=== PATIENT | female | born 1940 | race Caucasian/White ===

== ENCOUNTER 2019-11-21 21:45 | Inpatient (IN) ==
[2019-11-22] MEDS ORDERED: Ondansetron 4 MG/2 ML VIAL IVP PRN (02:26)
[2019-11-22] MEDS ORDERED: Naloxone 0.4 MG/ML INJ IVP PRN (02:26)
[2019-11-22] MEDS ORDERED: Ringers Solution, Lactated 1,000 ML IVC SCH (02:30)
[2019-11-22 03:05] LABS: Adenovirus Not Detected (Not Detect); Bordetella Pertussis Not Detected (Not Detect); Chlamydophila pneumoniae Not Detected (Not Detect); Coronavirus 229E Not Detected (Not Detect); Coronavirus HKU1 Not Detected (Not Detect); Coronavirus NL63 Not Detected (Not Detect); Coronavirus OC43 Not Detected (Not Detect); Human Metapneumovirus Not Detected (Not Detect); Human Rhinovirus/Enterovirus Not Detected (Not Detect); Influenza A Subtype 2009 H1 Not Detected (Not Detect); Influenza B Not Detected (Not Detect); Mycoplasma pneumoniae Not Detected (Not Detect); Parainfluenza Virus 1 Not Detected (Not Detect); Parainfluenza Virus 2 Not Detected (Not Detect); Parainfluenza Virus 3 Not Detected (Not Detect); Parainfluenza Virus 4 Not Detected (Not Detect); Respiratory Syncytial Virus Not Detected (Not Detect); SARS-CoV-2 Not Detected (Not Detect)
[2019-11-22] MEDS ORDERED: Acetaminophen 325 MG TABLET PO PRN (03:29)
[2019-11-22] MEDS ORDERED: Ipratropium/Albuterol Neb 3 ML IH PRN (03:29)
[2019-11-22] MEDS ORDERED: DilTIAZem 50 MG/50 ML IV.SOLN IVC SCH (03:30)
[2019-11-22] MEDS ORDERED: Perflutren Lipid Microsphere 1.3 ML in 0.9 % Sodium Chloride 8.7 ML IVP PRN (03:35)
[2019-11-22] MEDS: Ipratropium/Albuterol Neb 3 ML IH SCH ×6 (04:20→23:06)
[2019-11-22] MEDS ORDERED: *HR* Heparin 5,000 UNIT/ML VIAL IVP PRN ×2 (04:31)
[2019-11-22] MEDS ORDERED: *HR* Heparin 5,000 UNIT/ML VIAL IVP ONE (04:31)
[2019-11-22] MEDS ORDERED: Heparin 25,000 UNIT/250 ML D5W 25,000 UNIT/250 ML IV.SOLN IVC SCH (04:45)
[2019-11-22] MEDS ORDERED: 0.9 % Sodium Chloride 500 ML ONE (05:56)
[2019-11-22 09:48] LABS: Basophils % 0.4 %; Hematocrit 32.9 % (35.3-44.9)
[2019-11-22 09:49] LABS: Immature Granulocytes % 0.4 % (0-4); Immature Platelets 7.3 % (1.1-6.1); Lymphocytes % 25.1 %; Mean Corpuscular HGB Conc 30.4 g/dL (31.6-35.5); Mean Corpuscular Hemoglobin 29.7 pg (28.0-33.3); Mean Corpuscular Volume 97.6 fL (83.0-100.0); Mean Platelet Volume 12.1 fL (9.4-12.4); Monocytes # 0.5 K/mcL (0.0-1.3); Monocytes % 6.5 %; Neutrophils # 5.5 K/mcL (1.6-8.9); Red Blood Count 3.37 M/mcL (3.82-4.97); Segmented Neutrophils % 67.6 %; White Blood Count 8.1 K/mcL (4.3-11.1)
[2019-11-22] MEDS: Piperacillin/Tazobactam 3.375 GM in 0.9 % Sodium Chloride Mini Bag 100 ML IVPB SCH ×3 (09:53→23:31)
[2019-11-22] MEDS: Aspirin Enteric Coated 81 MG Tablet PO SCH (09:55)
[2019-11-22 10:06] LABS: Platelet Count 56 K/mcL (140-400)
[2019-11-22 10:10] LABS: Albumin 2.1 g/dL (3.5-5.7); Albumin/Globulin Ratio 0.8 (1.1-2.2); Bilirubin,Total 0.4 mg/dL (0.3-1.0); Calcium 5.9 mg/dL (8.6-10.3); Globulin 2.5 g/dL (2.4-3.5); Magnesium 1.7 mg/dL (1.6-2.6); Potassium 3.6 mEq/L (3.5-5.1); Total Protein 4.6 g/dL (6.4-8.9); Troponin I 0.04 ng/mL (< 0.04)
[2019-11-22] MEDS: Levalbuterol Neb 0.63 MG/3 ML IH SCH ×3 (10:16→21:25)
[2019-11-22] MEDS ORDERED: Acetaminophen IV 500 MG/50 ML BAG IVPB ONE (12:15)
[2019-11-22 12:34] LABS: Phosphorous 2.1 mg/dL (2.7-4.5)
[2019-11-22] MEDS ORDERED: Calcium Gluconate 1gm/50mL 1 GM/50 ML BAG IVPB ONE (13:21)
[2019-11-22] MEDS ORDERED: Lidocaine -MPF 1% 5 ML AMPUL INFILT ONE (14:30)
[2019-11-22] MEDS ORDERED: *HR* Digoxin 0.5 MG/2 ML AMPUL IVP ONE (15:08)
[2019-11-22] MEDS: *HR* OxyCODONE/APAP 10/325 TABLET PO PRN ×2 (15:39→23:31)
[2019-11-22] MEDS ORDERED: Potassium Phosphate 44 MEQ in 0.9 % Sodium Chloride 250 ML IVPB PRN (16:09)
[2019-11-22 17:20] LABS: Calcium 5.9 mg/dL (8.6-10.3); Potassium 3.5 mEq/L (3.5-5.1)
[2019-11-22] MEDS: Potassium Chloride 40 MEQ/200 ML BAG IVPB PRN ×2 (18:42→20:30)
[2019-11-22] MEDS: Norepinephrine 4 MG/254 ML IV.SOLN IVC SCH (20:43)
[2019-11-22] MEDS: Calcium Gluconate 1gm/50mL 1 GM/50 ML BAG IVPB SCH ×2 (20:48→21:22)
[2019-11-23] MEDS: Norepinephrine 4 MG/254 ML IV.SOLN IVC SCH ×3 (01:14→23:00)
[2019-11-23] MEDS: Ipratropium/Albuterol Neb 3 ML IH SCH ×2 (03:33→07:21)
[2019-11-23] MEDS: Levalbuterol Neb 0.63 MG/3 ML IH SCH ×4 (03:34→21:13)
[2019-11-23 04:36] LABS: VBG Ionized Calcium 1.04 mmol/L (1.15-1.35)
[2019-11-23 04:49] LABS: Magnesium 2.2 mg/dL (1.6-2.6); Phosphorous 4.5 mg/dL (2.7-4.5)
[2019-11-23 04:51] LABS: Hemoglobin 10.1 g/dL (11.5-15.4); Immature Granulocytes % 0.8 % (0-4); Red Cell Distribution Width 16.2 % (11.5-14.5)
[2019-11-23 04:53] LABS: Basophils % 0.3 %; Hematocrit 32.9 % (35.3-44.9); Immature Platelets 9.4 % (1.1-6.1); Lymphocytes # 2.1 K/mcL (0.6-4.6); Lymphocytes % 27.5 %; Mean Corpuscular HGB Conc 30.7 g/dL (31.6-35.5); Mean Corpuscular Hemoglobin 29.4 pg (28.0-33.3); Mean Corpuscular Volume 95.6 fL (83.0-100.0); Mean Platelet Volume 11.2 fL (9.4-12.4); Monocytes # 0.3 K/mcL (0.0-1.3); Monocytes % 3.4 %; Nucleated Red Blood Cells 0.3 /100 WBC (0); Red Blood Count 3.44 M/mcL (3.82-4.97); White Blood Count 7.7 K/mcL (4.3-11.1)
[2019-11-23 04:57] LABS: Neutrophils # 5.2 K/mcL (1.6-8.9); Platelet Count 53 K/mcL (140-400)
[2019-11-23 05:44] LABS: Anisocytosis 1+ (Not Present); Platelet Estimate Decreased (Normal)
[2019-11-23] MEDS: Calcium Gluconate 1gm/50mL 1 GM/50 ML BAG IVPB PRN (05:58)
[2019-11-23 06:14] LABS: Calcium 6.4 mg/dL (8.6-10.3); Potassium 4.2 mEq/L (3.5-5.1)
[2019-11-23] MEDS: Piperacillin/Tazobactam 3.375 GM in 0.9 % Sodium Chloride Mini Bag 100 ML IVPB SCH ×2 (08:22→15:31)
[2019-11-23] MEDS: Aspirin Enteric Coated 81 MG Tablet PO SCH (08:22)
[2019-11-23 10:09] LABS: ABG Base Excess -11 mEq/L (-2 to 3); ABG HCO3 14 mEq/L (21-27); ABG Oxygen Saturation 65 % (95-98); ABG PCO2 28 mmHg (35-45); ABG PH 7.32 pH Units (7.32-7.45); ABG PO2 36 mmHg (85-104); ABG TCO2 15 mEq/L (20-26)
[2019-11-23 10:16] LABS: ABG Base Excess -11 mEq/L (-2 to 3); ABG HCO3 14 mEq/L (21-27); ABG Oxygen Saturation 88 % (95-98); ABG PCO2 26 mmHg (35-45); ABG PH 7.33 pH Units (7.32-7.45); ABG PO2 57 mmHg (85-104); ABG TCO2 15 mEq/L (20-26)
[2019-11-23 11:30] LABS: VBG Ionized Calcium 0.98 mmol/L (1.15-1.35)
[2019-11-23] MEDS: *HR* OxyCODONE/APAP 10/325 TABLET PO PRN (12:16)
[2019-11-23] MEDS ORDERED: Calcium Chloride 2,000 MG in 0.9 % Sodium Chloride 100 ML IVPB ONE (15:30)
[2019-11-23 17:20] LABS: VBG Ionized Calcium 1.43 mmol/L (1.15-1.35)
[2019-11-23] MEDS ORDERED: *HR* Digoxin 0.5 MG/2 ML AMPUL IVP STA (18:36)
[2019-11-23] MEDS ORDERED: *HR* LORazepam 0.5 MG TABLET PO ONE (21:05)
[2019-11-23] MEDS ORDERED: *HR* LORazepam 2 MG/ML VIAL IVP ONE (21:31)
[2019-11-23 22:02] LABS: VBG Ionized Calcium 1.27 mmol/L (1.15-1.35)
[2019-11-24] MEDS: Piperacillin/Tazobactam 3.375 GM in 0.9 % Sodium Chloride Mini Bag 100 ML IVPB SCH ×3 (00:17→17:32)
[2019-11-24] MEDS: Levalbuterol Neb 0.63 MG/3 ML IH SCH ×4 (03:18→21:25)
[2019-11-24 04:43] LABS: ABG Base Excess -13 mEq/L (-2 to 3); ABG HCO3 13 mEq/L (21-27); ABG Oxygen Saturation 92 % (95-98); ABG PCO2 27 mmHg (35-45); ABG PH 7.28 pH Units (7.32-7.45); ABG PO2 70 mmHg (85-104); ABG TCO2 14 mEq/L (20-26)
[2019-11-24] MEDS: Norepinephrine 4 MG/254 ML IV.SOLN IVC SCH ×2 (04:54→09:56)
[2019-11-24 05:16] LABS: Basophils # 0.1 K/mcL (0.0-0.2); Basophils % 0.6 %; Eosinophils # 0.1 K/mcL (0.0-0.6); Eosinophils % 0.7 %; Hematocrit 34.6 % (35.3-44.9); Immature Platelets 10.8 % (1.1-6.1); Lymphocytes # 2.8 K/mcL (0.6-4.6); Lymphocytes % 26.7 %; Mean Corpuscular HGB Conc 31.8 g/dL (31.6-35.5); Mean Corpuscular Hemoglobin 30.6 pg (28.0-33.3); Mean Corpuscular Volume 96.4 fL (83.0-100.0); Mean Platelet Volume 13.9 fL (9.4-12.4); Monocytes # 0.3 K/mcL (0.0-1.3); Nucleated Red Blood Cells 0.5 /100 WBC (0); Red Blood Count 3.59 M/mcL (3.82-4.97); Red Cell Distribution Width 16.5 % (11.5-14.5); White Blood Count 10.3 K/mcL (4.3-11.1)
[2019-11-24 05:22] LABS: VBG Ionized Calcium 1.26 mmol/L (1.15-1.35)
[2019-11-24 05:33] LABS: Calcium 7.6 mg/dL (8.6-10.3); Potassium 4.5 mEq/L (3.5-5.1)
[2019-11-24 05:36] LABS: Magnesium 2.5 mg/dL (1.6-2.6); Phosphorous 5.6 mg/dL (2.7-4.5); Platelet Count 53 K/mcL (140-400)
[2019-11-24] MEDS ORDERED: Sodium Bicarbonate 50 MEQ/50 ML VIAL IVP ONE ×2 (05:52→12:30)
[2019-11-24] MEDS ORDERED: Ringers Solution, Lactated 1,000 ML IVC SCH (06:00)
[2019-11-24 06:01] LABS: Platelet Estimate Decreased (Normal)
[2019-11-24] MEDS ORDERED: Sodium Bicarbonate 150 MEQ in D5% in Water 1,000 ML IVC SCH (06:30)
[2019-11-24] MEDS: Aspirin Enteric Coated 81 MG Tablet PO SCH (07:55)
[2019-11-24 11:51] LABS: ABG Base Excess -13 mEq/L (-2 to 3); ABG HCO3 13 mEq/L (21-27); ABG Oxygen Saturation 90 % (95-98); ABG PCO2 29 mmHg (35-45); ABG PH 7.27 pH Units (7.32-7.45); ABG PO2 64 mmHg (85-104); ABG TCO2 14 mEq/L (20-26)
[2019-11-24 13:16] LABS: Calcium 7.4 mg/dL (8.6-10.3); Potassium 4.2 mEq/L (3.5-5.1)
[2019-11-24 17:04] LABS: Amphetamine Screen,Urine Negative ng/mL (Cutoff=1000); Barbiturate Screen,Urine Negative ng/mL (Cutoff=200); Benzodiazepines Screen,Urine Negative ng/mL (Cutoff=200); Cannabinoid Screen,Urine Negative ng/mL (Cutoff = 50); Cocaine Screen,Urine Negative ng/mL (Cutoff= 300); Opiate Screen,Urine Negative ng/mL (Cutoff=300); Phencyclidine Screen,Urine Negative ng/mL (Cutoff=25)
[2019-11-24 17:44] LABS: Bacteria,Urine Few per hpf (None-Few); Bilirubin,Urine Negative (Negative); Blood,Urine Small (Negative); Clarity,Urine Turbid (Clear); Color,Urine Light-Yellow (Yellow); Glucose,Urine (UA) Normal (Normal); Granular Casts,Urine Moderate per lpf (None Seen); Ketones,Urine Trace mg/dL (Negative); Leukocyte Esterase,Urine Negative (Negative); Mucus,Urine Few per lpf (None-Few); Nitrite,Urine Negative (Negative); Protein,Urine 100 mg/dL (Neg-Trace); Renal Epithelial Cells,Urine Few per hpf (None-Few); Specific Gravity,Urine 1.018 (1.010-1.025); Transitional Epi Cells,Urine Few per hpf (None-Few); Urobilinogen,Urine Normal (Normal)
[2019-11-24] MEDS: Sodium Bicarbonate 150 MEQ in D5% in Water 1,000 ML IVC SCH (19:38)
[2019-11-24 23:17] LABS: Potassium,Urine 56.7 mEq/L
[2019-11-25] MEDS: Levalbuterol Neb 0.63 MG/3 ML IH SCH ×4 (03:33→22:06)
[2019-11-25 04:09] LABS: Monocytes % 2.6 %
[2019-11-25 04:11] LABS: VBG Ionized Calcium 1.06 mmol/L (1.15-1.35)
[2019-11-25 04:11] LABS: Basophils % 0.3 %; Hematocrit 32.7 % (35.3-44.9); Hemoglobin 10.4 g/dL (11.5-15.4); Immature Granulocytes % 0.7 % (0-4); Immature Platelets 9.9 % (1.1-6.1); Lymphocytes # 1.9 K/mcL (0.6-4.6); Lymphocytes % 25.8 %; Mean Corpuscular HGB Conc 31.8 g/dL (31.6-35.5); Mean Corpuscular Hemoglobin 30.4 pg (28.0-33.3); Mean Corpuscular Volume 95.6 fL (83.0-100.0); Monocytes # 0.2 K/mcL (0.0-1.3); Nucleated Red Blood Cells 0.4 /100 WBC (0); Red Blood Count 3.42 M/mcL (3.82-4.97); Red Cell Distribution Width 16.6 % (11.5-14.5); Segmented Neutrophils % 70.6 %; White Blood Count 7.3 K/mcL (4.3-11.1)
[2019-11-25 04:22] LABS: Neutrophils # 5.2 K/mcL (1.6-8.9); Platelet Count 34 K/mcL (140-400)
[2019-11-25 04:44] LABS: Calcium 6.7 mg/dL (8.6-10.3); Potassium 3.6 mEq/L (3.5-5.1)
[2019-11-25 04:47] LABS: Magnesium 2.3 mg/dL (1.6-2.6); Phosphorous 4.6 mg/dL (2.7-4.5); Uric Acid 8.6 mg/dL (2.3-7.6)
[2019-11-25 04:55] LABS: Thyroid Stimulating Hormone 0.689 mcIU/mL (0.340-5.600)
[2019-11-25 05:05] LABS: Anisocytosis 1+ (Not Present); Platelet Estimate Decreased (Normal); Poikilocytosis 1+ (Not Present)
[2019-11-25] MEDS: Sodium Bicarbonate 150 MEQ in D5% in Water 1,000 ML IVC SCH (05:06)
[2019-11-25] MEDS: Piperacillin/Tazobactam 3.375 GM in 0.9 % Sodium Chloride Mini Bag 100 ML IVPB SCH (05:32)
[2019-11-25] MEDS: Norepinephrine 4 MG/254 ML IV.SOLN IVC SCH ×2 (05:41→17:18)
[2019-11-25] MEDS ORDERED: Doxycycline 100 MG in 0.9 % Sodium Chloride Mini Bag 100 ML IVPB SCH (06:00)
[2019-11-25 06:33] LABS: Hepatitis B Surface Antigen Nonreactive (Nonreactive)
[2019-11-25] MEDS ORDERED: WATER IVC ONE (07:00)
[2019-11-25] MEDS ORDERED: D5 IVC ONE (07:00)
[2019-11-25] MEDS ORDERED: SODIUM BICARBONATE IVC ONE (07:00)
[2019-11-25 07:01] LABS: Hepatitis C Virus Antibody Nonreactive (Nonreactive)
[2019-11-25 07:02] LABS: Hepatitis B Core IgM Nonreactive (Nonreactive)
[2019-11-25 07:04] LABS: Hepatitis A Antibody IgM Nonreactive (Nonreactive)
[2019-11-25] MEDS: Aspirin Enteric Coated 81 MG Tablet PO SCH (08:40)
[2019-11-25] MEDS ORDERED: Cyanocobalamin (B-12) 1,000 MCG/ML VIAL IM ONE (11:49)
[2019-11-25 12:38] LABS: Hematocrit 33.8 % (35.3-44.9); Hemoglobin 10.7 g/dL (11.5-15.4); Immature Platelets 14.2 % (1.1-6.1); Mean Corpuscular HGB Conc 31.7 g/dL (31.6-35.5); Mean Corpuscular Hemoglobin 29.6 pg (28.0-33.3); Mean Corpuscular Volume 93.6 fL (83.0-100.0); Monocytes # 0.3 K/mcL (0.0-1.3); Nucleated Red Blood Cells 0.3 /100 WBC (0); Red Blood Count 3.61 M/mcL (3.82-4.97); Red Cell Distribution Width 16.3 % (11.5-14.5); White Blood Count 8.7 K/mcL (4.3-11.1)
[2019-11-25 12:44] LABS: Platelet Count 30 K/mcL (140-400)
[2019-11-25 12:55] LABS: Albumin 1.6 g/dL (3.5-5.7); Albumin/Globulin Ratio 0.6 (1.1-2.2); Bilirubin,Direct 0.2 mg/dL (0.0-0.2); Bilirubin,Indirect 0.3 mg/dL (0.0-1.0); Bilirubin,Total 0.5 mg/dL (0.3-1.0); Calcium 6.7 mg/dL (8.6-10.3); Globulin 2.5 g/dL (2.4-3.5); Potassium 3.5 mEq/L (3.5-5.1); Total Protein 4.1 g/dL (6.4-8.9)
[2019-11-25] MEDS: Thiamine (B-1) 100 MG in 0.9 % Sodium Chloride 50 ML IVPB SCH (13:09)
[2019-11-25 13:12] LABS: Anisocytosis 1+ (Not Present); Lymphocytes # 0.4 K/mcL (0.6-4.6); Neutrophils # 7.9 K/mcL (1.6-8.9); Poikilocytosis 1+ (Not Present)
[2019-11-25 13:13] LABS: Large Platelets Present (Not Present); Platelet Estimate Normal (Normal); Reactive Lymphocytes Present (Not Present)
[2019-11-25] MEDS: Folic Acid 1 MG TABLET PO SCH (14:33)
[2019-11-25] MEDS ORDERED: SODIUM BICARBONATE IVC SCH (16:45)
[2019-11-25] MEDS ORDERED: NACL IVC SCH (16:45)
[2019-11-25] MEDS ORDERED: D5 IVC SCH (16:45)
[2019-11-25] MEDS: Piperacillin/Tazobactam 3.375 GM in D5% in Water (Mini-Bag+) 100 ML IVPB SCH (17:18)
[2019-11-25] MEDS: D5% in Water 1,000 ML IVC SCH (17:18)
[2019-11-25] MEDS: Doxycycline 100 MG in 0.9 % Sodium Chloride Mini Bag 100 ML IVPB SCH (20:36)
[2019-11-25] MEDS ORDERED: *HR* LORazepam 2 MG/ML VIAL IVP ONE (20:49)
[2019-11-25] MEDS ORDERED: levETIRAcetam 1,000 MG in 0.9 % Sodium Chloride 100 ML IVPB ONE (20:49)
[2019-11-25] MEDS ORDERED: Doxycycline 100 MG CAPSULE PO SCH (21:00)
[2019-11-25] MEDS: Acyclovir 550 MG in D5% in Water 100 ML IVPB SCH (22:00)
[2019-11-26] MEDS: D5% in Water 1,000 ML IVC SCH (03:01)
[2019-11-26] MEDS: Levalbuterol Neb 0.63 MG/3 ML IH SCH ×4 (03:27→21:31)
[2019-11-26 03:46] LABS: VBG Ionized Calcium 0.99 mmol/L (1.15-1.35)
[2019-11-26 04:36] LABS: Magnesium 2.5 mg/dL (1.6-2.6)
[2019-11-26 04:37] LABS: Calcium 6.4 mg/dL (8.6-10.3); Potassium 3.8 mEq/L (3.5-5.1)
[2019-11-26] MEDS: Calcium Gluconate 1gm/50mL 1 GM/50 ML BAG IVPB PRN ×3 (04:48→16:56)
[2019-11-26] MEDS: Piperacillin/Tazobactam 3.375 GM in D5% in Water (Mini-Bag+) 100 ML IVPB SCH (05:07)
[2019-11-26] MEDS ORDERED: Albumin 25% 25gram/100mL 25 GM/100 ML IV.SOLN IVPB ONE (05:55)
[2019-11-26] MEDS ORDERED: *HR* Etomidate 20 MG/10 ML AMPUL IVP ONE (06:14)
[2019-11-26 06:35] LABS: Nucleated Red Blood Cells 0.5 /100 WBC (0)
[2019-11-26 06:37] LABS: Hematocrit 33.5 % (35.3-44.9); Hemoglobin 10.2 g/dL (11.5-15.4); Immature Platelets 16.2 % (1.1-6.1); Mean Corpuscular HGB Conc 30.4 g/dL (31.6-35.5); Mean Corpuscular Hemoglobin 28.9 pg (28.0-33.3); Mean Corpuscular Volume 94.9 fL (83.0-100.0); Mean Platelet Volume 13.4 fL (9.4-12.4); Red Blood Count 3.53 M/mcL (3.82-4.97); Red Cell Distribution Width 16.9 % (11.5-14.5); White Blood Count 15.5 K/mcL (4.3-11.1)
[2019-11-26] MEDS: Aspirin Enteric Coated 81 MG Tablet PO SCH (06:59)
[2019-11-26] MEDS: Folic Acid 1 MG TABLET PO SCH (06:59)
[2019-11-26] MEDS ORDERED: *HR* LORazepam 2 MG/ML VIAL IVP ONE (07:28)
[2019-11-26 07:47] LABS: Platelet Count 43 K/mcL (140-400)
[2019-11-26 07:49] LABS: Lymphocytes # 1.9 K/mcL (0.6-4.6); Neutrophils # 13.6 K/mcL (1.6-8.9); Platelet Estimate Decreased (Normal)
[2019-11-26 07:50] LABS: Anisocytosis 1+ (Not Present)
[2019-11-26] MEDS: Doxycycline 100 MG in 0.9 % Sodium Chloride Mini Bag 100 ML IVPB SCH (08:00)
[2019-11-26] MEDS: Acyclovir 550 MG in D5% in Water 100 ML IVPB SCH (08:02)
[2019-11-26] MEDS: Thiamine (B-1) 100 MG in 0.9 % Sodium Chloride 50 ML IVPB SCH ×2 (08:06→08:13)
[2019-11-26] MEDS: Dexmedetomidine HCl 400 MCG/100 ML MLS IVC SCH (09:48)
[2019-11-26 10:00] LABS: VBG Ionized Calcium 0.88 mmol/L (1.15-1.35)
[2019-11-26] MEDS: FentaNYL (PF) 1,000 MCG/100 ML IV.SOLN IVC SCH (10:07)
[2019-11-26] MEDS: Norepinephrine 4 MG/254 ML IV.SOLN IVC SCH ×2 (10:48→17:35)
[2019-11-26] MEDS ORDERED: *HR* Heparin 5,000 UNIT/ML VIAL CRRT PRN (11:19)
[2019-11-26] MEDS ORDERED: 0.9 % Sodium Chloride 1,000 ML PRIME SCH (11:30)
[2019-11-26] MEDS: Heparin 1,000 UNITS/500 mL 500 ML ONE ×2 (12:01→12:13)
[2019-11-26] MEDS: PrismaSATE BGK 4/2.5 5,000 ML CRRT SCH ×6 (13:03→22:32)
[2019-11-26 14:28] LABS: Blood Gas VT 480 cc; VBG HCO3 21 mEq/L (21-27); VBG PCO2 36 mmHg (41-51); VBG PH 7.37 pH Units (7.32-7.42); VBG PO2 48 mmHg (25-50)
[2019-11-26] MEDS ORDERED: Artificial Tears SOLN 15 ML BOTTLE BOTH EYES PRN (16:17)
[2019-11-26] MEDS: Cefepime HCl 2,000 MG in Water for inj. (sterile) 20 ML IVP SCH ×2 (16:24→23:42)
[2019-11-26] MEDS ORDERED: Vancomycin 1,750 MG/517.5 ML IV.SOLN IVPB ONE (16:38)
[2019-11-26 16:44] LABS: VBG Ionized Calcium 1.01 mmol/L (1.15-1.35)
[2019-11-26] MEDS ORDERED: Vancomycin 1 EACH in 0.9 % Sodium Chloride 250 ML IVPB SCH (17:00)
[2019-11-26 17:01] LABS: Albumin 1.8 g/dL (3.5-5.7); Albumin/Globulin Ratio 0.7 (1.1-2.2); Bilirubin,Total 0.6 mg/dL (0.3-1.0); Calcium 6.6 mg/dL (8.6-10.3); Globulin 2.6 g/dL (2.4-3.5); Magnesium 2.4 mg/dL (1.6-2.6); Phosphorous 3.6 mg/dL (2.7-4.5); Potassium 3.5 mEq/L (3.5-5.1); Total Protein 4.4 g/dL (6.4-8.9)
[2019-11-26] MEDS: MetroNIDAZOLE 500 MG/100 ML 500 MG/100 ML BAG IVPB SCH (17:06)
[2019-11-26] MEDS: Famotidine 20 MG/2 ML VIAL IVP SCH (17:06)
[2019-11-26] MEDS: Nicotine 14 MG PATCH.TD24 TD SCH (17:08)
[2019-11-26] MEDS: Artificial Tears SOLN 15 ML BOTTLE BOTH EYES SCH ×2 (19:51→23:42)
[2019-11-26] MEDS: Chlorhexidine Rinse 15 ML MOUTHWASH MM SCH (19:52)
[2019-11-27] MEDS: Norepinephrine 4 MG/254 ML IV.SOLN IVC SCH ×9 (00:55→23:09)
[2019-11-27] MEDS: MetroNIDAZOLE 500 MG/100 ML 500 MG/100 ML BAG IVPB SCH ×3 (00:57→17:11)
[2019-11-27] MEDS: Levalbuterol Neb 0.63 MG/3 ML IH SCH ×4 (03:38→21:18)
[2019-11-27] MEDS: Artificial Tears SOLN 15 ML BOTTLE BOTH EYES SCH ×6 (03:52→23:14)
[2019-11-27] MEDS: FentaNYL (PF) 1,000 MCG/100 ML IV.SOLN IVC SCH ×2 (03:52→20:09)
[2019-11-27 04:02] LABS: Eosinophils % 0.1 %; Hematocrit 35.7 % (35.3-44.9)
[2019-11-27 04:04] LABS: Basophils # 0.1 K/mcL (0.0-0.2); Basophils % 0.6 %; Hemoglobin 11.1 g/dL (11.5-15.4); Immature Granulocytes % 0.9 % (0-4); Immature Platelets 21.3 % (1.1-6.1); Lymphocytes # 6.8 K/mcL (0.6-4.6); Lymphocytes % 48.5 %; Mean Corpuscular HGB Conc 31.1 g/dL (31.6-35.5); Mean Corpuscular Hemoglobin 29.2 pg (28.0-33.3); Mean Corpuscular Volume 93.9 fL (83.0-100.0); Monocytes # 0.5 K/mcL (0.0-1.3); Monocytes % 3.8 %; Neutrophils # 6.5 K/mcL (1.6-8.9); Nucleated Red Blood Cells 0.9 /100 WBC (0); Segmented Neutrophils % 46.1 %; White Blood Count 14.1 K/mcL (4.3-11.1)
[2019-11-27 04:05] LABS: Platelet Count 36 K/mcL (140-400)
[2019-11-27 04:07] LABS: VBG Ionized Calcium 1.01 mmol/L (1.15-1.35)
[2019-11-27 04:19] LABS: Albumin 1.8 g/dL (3.5-5.7); Albumin/Globulin Ratio 0.7 (1.1-2.2); Bilirubin,Total 0.6 mg/dL (0.3-1.0); Calcium 6.3 mg/dL (8.6-10.3); Globulin 2.5 g/dL (2.4-3.5); Magnesium 2.3 mg/dL (1.6-2.6); Potassium 3.7 mEq/L (3.5-5.1); Total Protein 4.3 g/dL (6.4-8.9)
[2019-11-27 04:31] LABS: Platelet Estimate Decreased (Normal); Smudge Cells Present (Not Present)
[2019-11-27] MEDS: Vasopressin 40 UNIT in D5% in Water 100 ML IVC SCH ×2 (04:47→18:04)
[2019-11-27] MEDS: Famotidine 20 MG/2 ML VIAL IVP SCH ×2 (04:55→17:11)
[2019-11-27] MEDS: PrismaSATE BGK 4/2.5 5,000 ML CRRT SCH ×8 (04:56→21:58)
[2019-11-27 05:41] LABS: ABG Base Excess -8 mEq/L (-2 to 3); ABG HCO3 17 mEq/L (21-27); ABG Oxygen Saturation 97 % (95-98); ABG PCO2 32 mmHg (35-45); ABG PH 7.34 pH Units (7.32-7.45); ABG PO2 96 mmHg (85-104); ABG TCO2 18 mEq/L (20-26); Blood Gas Modality AF; Blood Gas VT 480 cc
[2019-11-27] MEDS: Calcium Gluconate 1gm/50mL 1 GM/50 ML BAG IVPB PRN (06:10)
[2019-11-27] MEDS: Chlorhexidine Rinse 15 ML MOUTHWASH MM SCH ×2 (07:11→19:48)
[2019-11-27] MEDS: Aspirin Enteric Coated 81 MG Tablet PO SCH (07:11)
[2019-11-27] MEDS ORDERED: Hydrocortisone Sodium Succ 100 MG/2 ML VIAL IVP ONE (07:53)
[2019-11-27] MEDS: Cefepime HCl 2,000 MG in Water for inj. (sterile) 20 ML IVP SCH ×3 (08:05→23:56)
[2019-11-27] MEDS: Folic Acid 1 MG TABLET PO SCH (08:05)
[2019-11-27] MEDS: Acyclovir 700 MG in D5% in Water 250 ML IVPB SCH (08:06)
[2019-11-27] MEDS: Thiamine (B-1) 100 MG in 0.9 % Sodium Chloride 50 ML IVPB SCH (08:09)
[2019-11-27] MEDS: Dexmedetomidine HCl 400 MCG/100 ML MLS IVC SCH (08:10)
[2019-11-27] MEDS: Nicotine 14 MG PATCH.TD24 TD SCH (08:10)
[2019-11-27] MEDS ORDERED: Albumin Human 5% 12.5 GM/250 ML IV.SOLN IVPB ONE ×2 (08:30→16:00)
[2019-11-27] MEDS: Hydrocortisone Sodium Succ 100 MG/2 ML VIAL IVP SCH ×2 (13:09→23:17)
[2019-11-27] MEDS: levETIRAcetam 750 MG in 0.9 % Sodium Chloride 100 ML IVPB SCH (19:48)
[2019-11-27] MEDS ORDERED: Sodium Bicarbonate 50 MEQ/50 ML VIAL IVP ONE (23:21)
[2019-11-27] MEDS ORDERED: Sodium Bicarbonate 50 MEQ/50 ML VIAL ONE (23:27)
[2019-11-27] MEDS ORDERED: Norepinephrine 4 MG/254 ML IV.SOLN IVC SCH (23:45)
[2019-11-28 00:06] LABS: BUN/Creatinine Ratio 20 (6-26); Blood Urea Nitrogen 18 mg/dL (8-23); Calcium 6.6 mg/dL (8.6-10.3); Carbon Dioxide 19 mEq/L (23-29); Chloride 107 mEq/L (98-107); Glucose 103 mg/dL (70-105); Magnesium 2.2 mg/dL (1.6-2.6); Osmolality,Calculated 286 (280-300); Potassium 4.1 mEq/L (3.5-5.1); Sodium 137 mEq/L (136-145); eGFR For African Americans > 60 (> 60); eGFR For Non-African Americans > 60 (> 60)
[2019-11-28 00:23] LABS: Hemoglobin 10.5 g/dL (11.5-15.4); Red Cell Distribution Width 16.9 % (11.5-14.5)
[2019-11-28 00:25] LABS: Hematocrit 33.5 % (35.3-44.9); Immature Platelets 32.5 % (1.1-6.1); Mean Corpuscular HGB Conc 31.3 g/dL (31.6-35.5); Mean Corpuscular Hemoglobin 29.4 pg (28.0-33.3); Mean Corpuscular Volume 93.8 fL (83.0-100.0); Monocytes # 0.3 K/mcL (0.0-1.3); Nucleated Red Blood Cells 2.5 /100 WBC (0); Red Blood Count 3.57 M/mcL (3.82-4.97); White Blood Count 7.9 K/mcL (4.3-11.1)
[2019-11-28 00:35] LABS: Platelet Count 28 K/mcL (140-400)
[2019-11-28 01:01] LABS: Lymphocytes # 1.6 K/mcL (0.6-4.6)
[2019-11-28 01:02] LABS: Anisocytosis 1+ (Not Present); Microcytosis Present (Not Present); Platelet Estimate Marked Decrease (Normal); Reactive Lymphocytes Present (Not Present); Smudge Cells Present (Not Present)
[2019-11-28] MEDS: Norepinephrine 4 MG/254 ML IV.SOLN IVC SCH (01:30)
[2019-11-28] MEDS: MetroNIDAZOLE 500 MG/100 ML 500 MG/100 ML BAG IVPB SCH ×3 (02:23→17:13)
[2019-11-28] MEDS ORDERED: Sodium Bicarbonate 50 MEQ/50 ML VIAL IVP ONE ×4 (02:48→15:13)
[2019-11-28] MEDS: PrismaSATE BGK 4/2.5 5,000 ML CRRT SCH ×2 (02:49)
[2019-11-28 03:29] LABS: VBG Ionized Calcium 0.89 mmol/L (1.15-1.35)
[2019-11-28 03:37] LABS: Hematocrit 31.3 % (35.3-44.9); Hemoglobin 9.8 g/dL (11.5-15.4); Immature Platelets 33.4 % (1.1-6.1); Mean Corpuscular HGB Conc 31.3 g/dL (31.6-35.5); Mean Corpuscular Hemoglobin 28.9 pg (28.0-33.3); Mean Corpuscular Volume 92.3 fL (83.0-100.0); Nucleated Red Blood Cells 3.2 /100 WBC (0); Red Blood Count 3.39 M/mcL (3.82-4.97); Red Cell Distribution Width 16.9 % (11.5-14.5); White Blood Count 7.6 K/mcL (4.3-11.1)
[2019-11-28 03:44] LABS: Platelet Count 26 K/mcL (140-400)
[2019-11-28 03:50] LABS: Alanine Aminotransferase 51 Units/L (7-52); Albumin 2.4 g/dL (3.5-5.7); Albumin/Globulin Ratio 1.1 (1.1-2.2); Alkaline Phosphatase 52 Units/L (34-104); Aspartate Amino Transferase 181 Units/L (13-39); BUN/Creatinine Ratio 20 (6-26); Bilirubin,Total 1.2 mg/dL (0.3-1.0); Blood Urea Nitrogen 17 mg/dL (8-23); Calcium 6.3 mg/dL (8.6-10.3); Carbon Dioxide 21 mEq/L (23-29); Chloride 106 mEq/L (98-107); Globulin 2.1 g/dL (2.4-3.5); Glucose 85 mg/dL (70-105); Magnesium 2.3 mg/dL (1.6-2.6); Osmolality,Calculated 291 (280-300); Phosphorous 3.4 mg/dL (2.7-4.5); Potassium 4.1 mEq/L (3.5-5.1); Sodium 140 mEq/L (136-145); Total Protein 4.5 g/dL (6.4-8.9); eGFR For African Americans > 60 (> 60); eGFR For Non-African Americans > 60 (> 60)
[2019-11-28] MEDS: Artificial Tears SOLN 15 ML BOTTLE BOTH EYES SCH ×6 (03:56→23:10)
[2019-11-28] MEDS: Levalbuterol Neb 0.63 MG/3 ML IH SCH ×4 (03:59→21:46)
[2019-11-28] MEDS: Norepinephrine 8 MG in 0.9 % Sodium Chloride 250 ML IVC SCH ×5 (04:05→23:48)
[2019-11-28] MEDS: Phenylephrine 10 MG in 0.9 % Sodium Chloride 250 ML IVC SCH ×2 (04:38→05:53)
[2019-11-28 04:45] LABS: Lymphocytes # 1.5 K/mcL (0.6-4.6); Monocytes # 0.3 K/mcL (0.0-1.3); Neutrophils # 5.8 K/mcL (1.6-8.9)
[2019-11-28 04:46] LABS: Bilirubin,Direct 0.5 mg/dL (0.0-0.2); Bilirubin,Indirect 0.7 mg/dL (0.0-1.0); Platelet Estimate Marked Decrease (Normal); Reactive Lymphocytes Present (Not Present); Smudge Cells Present (Not Present)
[2019-11-28] MEDS: Famotidine 20 MG/2 ML VIAL IVP SCH ×2 (04:52→17:13)
[2019-11-28] MEDS: Hydrocortisone Sodium Succ 100 MG/2 ML VIAL IVP SCH ×3 (04:52→23:10)
[2019-11-28] MEDS ORDERED: Aminoglycoside Consult 1 EACH MC ONE (06:14)
[2019-11-28] MEDS: Phenylephrine 20 MG in 0.9 % Sodium Chloride 250 ML IVC SCH ×3 (06:39→21:53)
[2019-11-28] MEDS: Aspirin Enteric Coated 81 MG Tablet PO SCH (06:40)
[2019-11-28] MEDS: Chlorhexidine Rinse 15 ML MOUTHWASH MM SCH ×2 (07:07→19:29)
[2019-11-28 07:30] LABS: VBG HCO3 13 mEq/L (21-27); VBG PCO2 34 mmHg (41-51); VBG PO2 138 mmHg (25-50)
[2019-11-28] MEDS ORDERED: Sodium Bicarbonate 50 MEQ/50 ML VIAL ONE ×2 (07:32→10:27)
[2019-11-28] MEDS: FentaNYL (PF) 1,000 MCG/100 ML IV.SOLN IVC SCH (07:40)
[2019-11-28] MEDS: levETIRAcetam 750 MG in 0.9 % Sodium Chloride 100 ML IVPB SCH ×2 (08:00→19:37)
[2019-11-28] MEDS: Acyclovir 700 MG in D5% in Water 250 ML IVPB SCH (08:00)
[2019-11-28] MEDS: Thiamine (B-1) 100 MG in 0.9 % Sodium Chloride 50 ML IVPB SCH (08:01)
[2019-11-28] MEDS: Cefepime HCl 2,000 MG in Water for inj. (sterile) 20 ML IVP SCH ×3 (08:02→23:10)
[2019-11-28] MEDS: Nicotine 14 MG PATCH.TD24 TD SCH (08:02)
[2019-11-28] MEDS: Folic Acid 1 MG TABLET PO SCH (08:03)
[2019-11-28] MEDS: Dexmedetomidine HCl 400 MCG/100 ML MLS IVC SCH (08:09)
[2019-11-28] MEDS: Sodium Bicarbonate 150 MEQ in D5% in Water 1,000 ML IVC SCH ×2 (08:42→15:32)
[2019-11-28 10:23] LABS: VBG HCO3 16 mEq/L (21-27); VBG PCO2 34 mmHg (41-51); VBG PH 7.27 pH Units (7.32-7.42); VBG PO2 127 mmHg (25-50)
[2019-11-28 13:08] LABS: VBG HCO3 14 mEq/L (21-27); VBG PCO2 26 mmHg (41-51); VBG PH 7.33 pH Units (7.32-7.42); VBG PO2 122 mmHg (25-50)
[2019-11-28] MEDS: Vasopressin 40 UNIT in D5% in Water 100 ML IVC SCH (14:06)
[2019-11-28 18:14] LABS: ANA IgG by ELISA NONE DETECTED (None Detected)
[2019-11-28] MEDS ORDERED: *HR* Dextrose 50 % in Water (Vial) 50 ML VIAL ONE (18:15)
[2019-11-28] MEDS ORDERED: *HR* Dextrose 50 % in Water (Vial) 50 ML VIAL IVP ONE (18:26)
[2019-11-29] MEDS: Phenylephrine 20 MG in 0.9 % Sodium Chloride 250 ML IVC SCH ×3 (00:11→03:54)
[2019-11-29] MEDS: Sodium Bicarbonate 150 MEQ in D5% in Water 1,000 ML IVC SCH (00:21)
[2019-11-29 01:10] LABS: Amphetamines NEGATIVE ng/mL (Cutoff 30); Barbiturates NEGATIVE ng/mL (Cutoff 75); Benzodiazepines NEGATIVE ng/mL (Cutoff 75); Buprenorphine NEGATIVE ng/mL (Cutoff 1); Cocaine NEGATIVE ng/mL (Cutoff 30); Methadone NEGATIVE ng/mL (Cutoff 40); Methamphetamines NEGATIVE ng/mL (Cutoff 30); Opiates NEGATIVE ng/mL (Cutoff 30); Phencyclidine NEGATIVE ng/mL (Cutoff 15)
[2019-11-29] MEDS: Levalbuterol Neb 0.63 MG/3 ML IH SCH (03:33)
[2019-11-29] MEDS: MetroNIDAZOLE 500 MG/100 ML 500 MG/100 ML BAG IVPB SCH (03:53)
[2019-11-29 04:13] VITALS: BP 51/41
[2019-11-29] MEDS ORDERED: Scopolamine Patch 1.5 MG PATCH.TD72 TD SCH (04:15)
[2019-11-29] MEDS ORDERED: FentaNYL (PF) 1,000 MCG/100 ML IV.SOLN IVC SCH (04:30)
[2019-11-29] MEDS: Artificial Tears SOLN 15 ML BOTTLE BOTH EYES SCH (04:56)
[2019-11-29] MEDS ORDERED: *HR* Atropine Sulfate 1 MG/10 ML SYRINGE IV ONE (06:14)
[2019-11-29 08:51] LABS: Serine Protease-3 Antibody 26 AU/mL (0-19)
[2019-11-30 11:51] LABS: Hydrocodone Confirmation <2 ng/mL
[2019-11-30 12:22] LABS: 6_Acetylmorphine Confirmation <2 ng/mL; Oxymorphone Confirmation <2 ng/mL
== END 2019-11-29 06:15 | disposition expired | DRG 871 ==
LOC: CDU → SUATTDRO 11-22 02:30 → 2NNU 11-22 03:51 → ICNU 11-22 14:25
PROVIDERS: ADMIT Family Medicine; ATTEND Internal Medicine